=== PATIENT | female | born 1995 | race Caucasian/White ===

== ENCOUNTER 2019-01-03 06:55 | Emergency (ER) | payer BC, MEDICAID ==
[2019-01-03] MEDS ORDERED: IBUPROFEN 600 MG TAB PO ONE (07:04)
--- NOTE | 2019-01-03 07:46 | EDPHY ---
H & P Stated Complaint: fever sore throat jaw and tooth pain Time Seen by Provider: 01/03/19 07:05 HPI/ROS: CHIEF COMPLAINT: Jaw pain, body aches HISTORY OF PRESENT ILLNESS: 23-year-old female presents with jaw pain and body aches. Onset of subjective fever yesterday evening, associated with jaw discomfort and generalized body aches. The jaw discomfort is severe, 8/10 and increases with eating. No sore throat. Associated with nausea, mild cough/ congestion, pain of all lower teeth and myalgias. No abdominal pain or urinary symptoms. No influenza vaccination this year. REVIEW OF SYSTEMS: complete 10 point ROS reviewed and is negative except for the noted elements in the HPI - Personal History LMP (Females 10-55): 1-7 Days Ago Current Tetanus Diphtheria and Acellular Pertussis (TDAP): Yes - Medical/Surgical History Hx Asthma: No Hx Chronic Respiratory Disease: No Hx Diabetes: No Hx Cardiac Disease: No Hx Renal Disease: No Hx Cirrhosis: No Hx Alcoholism: No Hx HIV/AIDS: No Hx Splenectomy or Spleen Trauma: No Other PMH: Denies. - Social History Smoking Status: Never smoked Alcohol Use: Rarely Drug Use: Marijuana - Physical Exam Exam: General Appearance: Alert, pleasant, nontoxic-appearing Eyes: Pupils equal and round, no conjunctival pallor or injection ENT, Mouth: Normal inspection, no pharyngeal erythema, no dental tenderness, mucous membranes moist Neck: Normal inspection, shotty adenopathy Respiratory: Lungs are clear to auscultation Cardiovascular: Regular rate and rhythm Gastrointestinal: Abdomen is soft and nontender Neurological: A&O, nonfocal, normal gait Skin: Warm and dry, no rash Extremities: Normal inspection Psychiatric: Mood and affect normal Constitutional: Initial Vital Signs Temperature (C) 37.9 C 01/03/19 07:00 Heart Rate 82 01/03/19 07:00 Respiratory Rate 17 01/03/19 07:00 Blood Pressure 99/73 L 01/03/19 07:00 O2 Sat (%) 96 01/03/19 07:00 O2 Delivery Mode Room Air Allergies/Adverse Reactions: No Known Allergies Allergy (Verified 01/03/19 06:59) Home Medications: Medication Instructions Recorded Ondansetron Odt [Zofran Odt 4 mg 4 mg PO Q4 PRN #6 tab 01/03/19 (*)] Oseltamivir Phosphate [Tamiflu 75 75 mg PO BID #10 cap 01/03/19 mg (RX)] Medical Decision Making ED Course/Re-evaluation: This patient presents with a viral syndrome. Ibuprofen 600 mg orally given. Feels better after ibuprofen. Influenza +, Tamiflu prescribed. Differential Diagnosis: Differential diagnosis includes but is not limited to dental abscess, pneumonia , otitis media, peritonsillar abscess, retropharyngeal abscess, meningitis. - Data Points Laboratory Results: 01/03/19 01/03/19 08:10 07:55 Urine Color PALE YELLOW Urine Appearance CLEAR Urine pH 5.0 (5.0-7.5) Ur Specific [place] 1.005 (1.002-1.030) Urine Protein NEGATIVE (NEGATIVE) Urine Ketones 1+ H (NEGATIVE) Urine Blood NEGATIVE (NEGATIVE) Urine Nitrate NEGATIVE (NEGATIVE) Urine Bilirubin NEGATIVE (NEGATIVE) Urine Urobilinogen NEGATIVE EU EU (0.2-1.0) Ur Leukocyte Esterase NEGATIVE (NEGATIVE) Urine Glucose NEGATIVE (NEGATIVE) Nasal Influenza A PCR FLU A DETECTED H (NEGATIVE) Nasal Influenza B PCR NEGATIVE FOR FLU B (NEGATIVE) Medications Given: Discontinued Medications Ibuprofen (Motrin) 600 mg PO EDNOW ONE Stop: 01/03/19 07:05 Last Admin: 01/03/19 07:09 Dose: 600 mg Departure - Departure Disposition: Home, Routine, Self-Care Clinical Impression: Influenza Condition: Good Instructions: Influenza (ED) Additional Instructions: Alternate Tylenol and ibuprofen every 3 hr for pain and fever control. Take Zofran as needed for nausea. Return for worsening symptoms or any concerns. Referrals: Veronica Pratt MD [Medical Doctor] - As per Instructions Prescriptions: Ondansetron Odt [Zofran Odt 4 mg (*)] 4 mg PO Q4 PRN #6 tab PRN Reason: Nausea Oseltamivir Phosphate [Tamiflu 75 mg (RX)] 75 mg PO BID #10 cap
[2019-01-03 08:48] VITALS: BP 117/69
== END 2019-01-03 08:47 | disposition home or self-care (01) ==
DX: R50.9 Fever, unspecified (principal); J10.1 Influenza due to other identified influenza virus with other respiratory manifestations